=== PATIENT | male | born 1935 | race Hispanic/Latino ===

== ENCOUNTER 2017-08-10 12:28 | Observation (INO) | payer OTHER ==
[~2017-08-10] VITALS: Ht 160 cm; Wt 69.4 kg
[2017-08-10 13:07] LABS: EOSINOPHILS % (AUTO) 3.8 % (0.0-8.0); HEMATOCRIT 41.2 % (42-54); MEAN CORPUSCULAR HEMOGLOBIN 32.1 pg (27.0-33.0); MEAN CORPUSCULAR HGB CONC 35.6 g/dL (32.0-36.0); MEAN CORPUSCULAR VOLUME 90.2 fL (79-99); MONOCYTES % (AUTO) 10.6 % (3.0-13.0); NEUTROPHILS % (AUTO) 61.6 % (40.0-77.0); PLATELET COUNT (AUTO) 227 K/uL (130-400); RED BLOOD CELL COUNT(AUTO) 4.57 MIL/uL (4.50-6.20); RED CELL DISTRIBUTION WIDTH 13.6 % (11.0-15.5); WHITE BLOOD COUNT (AUTO) 4.9 K/uL (4.8-10.8)
[2017-08-10 14:02] LABS: ALBUMIN 3.7 g/dL (3.5-5.0); BILIRUBIN,TOTAL 0.5 mg/dL (0.2-1.0); CREATININE 0.8 mg/dL (0.5-1.5); POTASSIUM 4.6 mmol/L (3.5-5.1); TOTAL PROTEIN, SERUM 6.8 g/dL (6.0-8.3)
[2017-08-10] MEDS ORDERED: SODIUM CHLORIDE 0.9% 1000ML 1,000 ML IV ONE ×2 (14:03→17:47)
[2017-08-10] MEDS: SODIUM CHLORIDE 0.9% 1000ML 1,000 ML IV SCH (16:29)
[2017-08-10] MEDS ORDERED: ACETAMINOPHEN 325 MG TAB PO PRN ×2 (16:30)
[2017-08-10] MEDS ORDERED: ONDANSETRON HCL 4 MG/2 ML VIAL IV PRN (16:30)
[2017-08-10] MEDS ORDERED: MAG HYDROX/AL HYDROX/SIMETH ES 30 ML SUSP UDCUP PO PRN (16:30)
[2017-08-10] MEDS ORDERED: LACTULOSE 20 GM/30 ML UDCUP PO PRN (16:30)
[2017-08-10] MEDS ORDERED: GUAIFENESIN-DM 200/20 MG 10 ML PO PRN (16:30)
[2017-08-10] MEDS ORDERED: HYDR12.54 PO (18:37)
[2017-08-10] MEDS ORDERED: DULO20CA17 PO (18:37)
[2017-08-10] MEDS ORDERED: ATOR40TA69 PO (18:37)
[2017-08-10] MEDS ORDERED: METF500T6 PO (18:37)
[2017-08-10] MEDS ORDERED: LISI-613 PO (18:37)
[2017-08-10] MEDS ORDERED: PHARMACY COMMUNICATION MISC SCH (18:45)
[2017-08-10 18:48] VITALS: BP 130/109
[2017-08-10] MEDS ORDERED: AEC81 PO (18:48)
[2017-08-10 20:00] VITALS: BP 130/109
[2017-08-10] MEDS: FAMOTIDINE/PF 20 MG/2 ML VIAL IV SCH (20:35)
[2017-08-10 23:53] VITALS: BP 100/54
[2017-08-11] MEDS ORDERED: DEXTROSE 50%-WATER 50 ML DISP.SYRIN IV PRN
[2017-08-11] MEDS ORDERED: LIDOCAINE HCL-MPF 1% 2ML VIAL IVP PRN
[2017-08-11] MEDS ORDERED: POTASSIUM CHLORIDE 10% ELIXIR 20 MEQ/15 ML UDCUP PO PRN
[2017-08-11] MEDS ORDERED: POTASSIUM CHLORIDE 20MEQ/100ML 100 ML IV PRN
[2017-08-11] MEDS ORDERED: POTASSIUM CHLORIDE 20 MEQ ERTAB PO PRN
[2017-08-11] MEDS ORDERED: GLUCAGON 1MG KIT 1 MG ML IM PRN
[2017-08-11] MEDS ORDERED: IPRATROPIUM/ALBUTEROL SULFATE 3 ML SOLUTION IH PRN (00:15)
[2017-08-11 04:00] VITALS: BP 109/58
[2017-08-11 05:36] LABS: HEMATOCRIT 41.2 % (42-54); MEAN CORPUSCULAR HEMOGLOBIN 31.7 pg (27.0-33.0); MEAN CORPUSCULAR HGB CONC 34.7 g/dL (32.0-36.0); MEAN CORPUSCULAR VOLUME 91.3 fL (79-99); PLATELET COUNT (AUTO) 235 K/uL (130-400); RED BLOOD CELL COUNT(AUTO) 4.51 MIL/uL (4.50-6.20); RED CELL DISTRIBUTION WIDTH 13.6 % (11.0-15.5); WHITE BLOOD COUNT (AUTO) 4.4 K/uL (4.8-10.8)
[2017-08-11 05:48] LABS: CREATININE 0.8 mg/dL (0.5-1.5); POTASSIUM 4.6 mmol/L (3.5-5.1)
[2017-08-11 05:53] LABS: CHLORIDE,URINE RANDOM 51 mmol/L (110-250); POTASSIUM,URINE RANDOM 14 mmol/L (25-125); SODIUM,URINE RANDOM 42 mmol/l (40-220)
[2017-08-11] MEDS: SODIUM CHLORIDE 0.9% 1000ML 1,000 ML IV SCH ×2 (06:07→23:44)
[2017-08-11] MEDS: INSULIN HUMULIN R 100 UNIT/ML 3ML SQ SCH ×4 (06:07→21:00)
[2017-08-11] MEDS ORDERED: HYDRALAZINE HCL 20 MG/ML VIAL IV PRN ×2 (08:30)
[2017-08-11] MEDS ORDERED: KETOROLAC TROMETHAMINE 15MG/ML IV PRN (08:30)
[2017-08-11] MEDS: FAMOTIDINE/PF 20 MG/2 ML VIAL IV SCH ×2 (08:55→23:44)
[2017-08-11] MEDS: DULOXETINE HCL 10 MG PO SCH (09:00)
[2017-08-11 09:43] VITALS: BP_SYST 106; BP_SYST 143; BP_DIAS 57; BP_DIAS 74
[2017-08-11] MEDS ORDERED: IOPAMIDOL-370 100 ML VIAL IV ONE (10:36)
[2017-08-11 11:00] VITALS: BP 109/67
[2017-08-11] MEDS: LISINOPRIL 20 MG TABLET PO SCH (13:43)
[2017-08-11] MEDS: ASPIRIN 81 MG EC TAB PO SCH (13:43)
[2017-08-11] MEDS: ENOXAPARIN SODIUM 30 MG/0.3 ML SQ SCH (13:44)
[2017-08-11 16:00] VITALS: BP_SYST 104; BP_SYST 144; BP_DIAS 65
[2017-08-11 19:40] VITALS: BP 111/64
[2017-08-11] MEDS ORDERED: ATORVASTATIN CALCIUM 40 MG TABLET PO SCH (21:00)
[2017-08-11 23:30] VITALS: BP 113/65
[2017-08-12 03:40] VITALS: BP 107/53
[2017-08-12 03:44] LABS: HEMATOCRIT 40.5 % (42-54); MEAN CORPUSCULAR HEMOGLOBIN 31.9 pg (27.0-33.0); MEAN CORPUSCULAR HGB CONC 34.9 g/dL (32.0-36.0); MEAN CORPUSCULAR VOLUME 91.4 fL (79-99); NUCLEATED RED BLOOD CELLS 0.1 % (0.0-0.19); PLATELET COUNT (AUTO) 228 K/uL (130-400); RED BLOOD CELL COUNT(AUTO) 4.43 MIL/uL (4.50-6.20); RED CELL DISTRIBUTION WIDTH 13.7 % (11.0-15.5); WHITE BLOOD COUNT (AUTO) 4.4 K/uL (4.8-10.8)
[2017-08-12 04:16] LABS: CREATININE 0.8 mg/dL (0.5-1.5); POTASSIUM 4.4 mmol/L (3.5-5.1)
[2017-08-12] MEDS: INSULIN HUMULIN R 100 UNIT/ML 3ML SQ SCH (06:17)
[2017-08-12 07:49] VITALS: BP 133/66
[2017-08-12] MEDS: SODIUM CHLORIDE 0.9% 1000ML 1,000 ML IV SCH (08:29)
[2017-08-12] MEDS: DULOXETINE HCL 10 MG PO SCH (09:00)
[2017-08-12] MEDS: ENOXAPARIN SODIUM 30 MG/0.3 ML SQ SCH (10:09)
[2017-08-12] MEDS: ASPIRIN 81 MG EC TAB PO SCH (10:09)
[2017-08-12] MEDS: FAMOTIDINE/PF 20 MG/2 ML VIAL IV SCH (10:09)
[2017-08-12] MEDS: LISINOPRIL 20 MG TABLET PO SCH (10:09)
[2017-10-23] MEDS ORDERED: GABA-529 PO (13:39)
[2017-10-23] MEDS ORDERED: INSU100V12 SQ (13:39)
== END 2017-08-12 10:25 | disposition home or self-care (01) ==
LOC: EDH 12:28 → EDHIP 16:29 → 3BH 18:08
PROVIDERS: ADMIT Family Medicine; ATTEND Family Medicine
DX: E87.1 Hypo-osmolality and hyponatremia (principal); E86.0 Dehydration; R13.10 Dysphagia, unspecified; F17.210 Nicotine dependence, cigarettes, uncomplicated; E11.9 Type 2 diabetes mellitus without complications; E78.5 Hyperlipidemia, unspecified; I10 Essential (primary) hypertension; J44.9 Chronic obstructive pulmonary disease, unspecified; Z85.118 Personal history of other malignant neoplasm of bronchus and lung
CPT/HCPCS: 36415 ×3; 70470; 70492; 71045; 74230; 80048 ×2; 80051; 80053; 82948 ×7; 83880; 83930; 83935; 84484; 84588; 85025; 85027 ×2; 92611; 93005; 94664; 96372; 96374; 96376 ×2; 97161; 99285; G0378 ×42; G8978; G8979; G8980; G8981; G8982; G8983; J1650 ×2; J1815; J3490 ×4; J7030 ×3; Q9967

== ENCOUNTER → 2017-09-09 | Outpatient (CLI) | payer OTHER ==
[~2017-09-09] MED LIST: AEC81 PO; ATOR40TA69 PO; DULO20CA17 PO; GABA-529 PO; INSU100V12 SQ; LISI-613 PO; METF500T6 PO; NAPR-1192 PO
== END ==
LOC: RAH 09:22
PROVIDERS: ATTEND Internal Medicine
DX: M17.12 Unilateral primary osteoarthritis, left knee (principal)
CPT/HCPCS: 73562

== ENCOUNTER 2017-10-24 10:06 | Day surgery (SDC) | payer OTHER ==
[~2017-10-24] VITALS: Ht 165.1 cm; Wt 65.8 kg
[~2017-10-24 10:06] MED LIST changes: -AEC81 PO; -ATOR40TA69 PO; -DULO20CA17 PO; -NAPR-1192 PO; +SODIUM CHLORIDE 0.9% 1000ML 1,000 ML IV ONE
[2017-10-24] MEDS ORDERED: NAPR-1192 PO (11:02)
[2017-10-24 11:03] VITALS: BP 141/67
[2017-10-24] MEDS ORDERED: PROPOFOL 10 MG/ML 20ML VIAL IV ONE (11:59)
[2017-10-24 12:10] VITALS: BP 94/48
== END 2017-10-24 12:58 | disposition home or self-care (01) ==
LOC: ENDO 10:06 → DAH 10:06 → ENDO 12:58
PROVIDERS: ATTEND Internal Medicine Gastroenterology
DX: K29.60 Other gastritis without bleeding (principal); B96.81 Helicobacter pylori [H. pylori] as the cause of diseases classified elsewhere; E11.43 Type 2 diabetes mellitus with diabetic autonomic (poly)neuropathy; K31.84 Gastroparesis; R63.4 Abnormal weight loss; I10 Essential (primary) hypertension; E78.4 Other hyperlipidemia; J44.9 Chronic obstructive pulmonary disease, unspecified; F17.210 Nicotine dependence, cigarettes, uncomplicated; Z79.82 Long term (current) use of aspirin; Z85.118 Personal history of other malignant neoplasm of bronchus and lung; Z79.899 Other long term (current) drug therapy
CPT/HCPCS: 43239; 82948 ×2; 88305; 88312; 93005; A4606; J2704; J7030

== ENCOUNTER → 2017-11-10 | Outpatient (CLI) | payer OTHER ==
[~2017-11-10] MED LIST changes: +NAPR-1192 PO; -SODIUM CHLORIDE 0.9% 1000ML 1,000 ML IV ONE
[2017-11-10 10:10] LABS: CREATININE 0.8 mg/dL (0.5-1.5)
== END | disposition home or self-care (01) ==
LOC: LAB 08:42
PROVIDERS: ATTEND Internal Medicine
DX: R63.4 Abnormal weight loss (principal)
CPT/HCPCS: 36415; 82565; 84520

== ENCOUNTER → 2018-07-02 | Outpatient (CLI) | payer OTHER ==
[~2018-07-02] MED LIST changes: +METF-444 PO; -METF500T6 PO
== END | disposition home or self-care (01) ==
LOC: RAH 08:45
PROVIDERS: ATTEND Internal Medicine
DX: R91.8 Other nonspecific abnormal finding of lung field (principal); M47.895 Other spondylosis, thoracolumbar region
CPT/HCPCS: 71046

== ENCOUNTER → 2018-08-27 | Outpatient (CLI) | payer OTHER | END | disposition home or self-care (01) | LOC: RAH 07:15 | PROVIDERS: ATTEND Internal Medicine | DX: R05 Cough (principal); I70.0 Atherosclerosis of aorta; M47.815 Spondylosis without myelopathy or radiculopathy, thoracolumbar region | CPT/HCPCS: 71046 ==

== ENCOUNTER 2018-10-06 04:05 | Inpatient (IN) | payer OTHER | END 2018-10-09 13:50 | disposition home or self-care (01) | LOC: EDH 04:05 → EDHIP 06:15 → 3BH 18:23 | DX: J18.9 Pneumonia, unspecified organism (principal); J96.01 Acute respiratory failure with hypoxia; J44.0 Chronic obstructive pulmonary disease with (acute) lower respiratory infection; R04.2 Hemoptysis ==

== ENCOUNTER 2019-04-19 18:48 | Observation (INO) | payer OTHER ==
[~2019-04-19] VITALS: Ht 160 cm; Wt 64.9 kg
[2019-04-19] MEDS ORDERED: IPRATROPIUM/ALBUTEROL SULFATE 3 ML SOLUTION IH ONE (20:18)
[2019-04-19 20:19] LABS: BASOPHILS % (AUTO) 0.7 % (0.0-5.0); EOSINOPHILS % (AUTO) 0.1 % (0.0-8.0); HEMATOCRIT 43.5 % (42-54); LYMPHOCYTES % (AUTO) 20.4 % (21.0-51.0); MEAN CORPUSCULAR HEMOGLOBIN 32.1 pg (27.0-33.0); MEAN CORPUSCULAR HGB CONC 34.5 g/dL (32.0-36.0); MONOCYTES % (AUTO) 8.4 % (3.0-13.0); NEUTROPHILS % (AUTO) 70.4 % (40.0-77.0); NUCLEATED RED BLOOD CELLS 0.1 % (0.0-0.19); PLATELET COUNT (AUTO) 219 K/uL (130-400); RED BLOOD CELL COUNT(AUTO) 4.68 MIL/uL (4.50-6.20); RED CELL DISTRIBUTION WIDTH 13.6 % (11.0-15.5)
[2019-04-19 20:35] LABS: CREATININE 0.9 mg/dL (0.5-1.5); POTASSIUM 4.2 mmol/L (3.5-5.1)
[2019-04-19 20:40] LABS: ALBUMIN 3.3 g/dL (3.5-5.0); BILIRUBIN,TOTAL 0.3 mg/dL (0.2-1.0); TOTAL PROTEIN, SERUM 6.6 g/dL (6.0-8.3)
[2019-04-19] MEDS ORDERED: LEVOFLOXACIN 500 MG/D5W 100 ML 100 ML ONE (20:49)
[2019-04-19] MEDS ORDERED: METHYLPREDNISOLONE SOD SUCC 125MG/2ML VIAL ONE (20:49)
[2019-04-19] MEDS: METHYLPREDNISOLONE SOD SUCC 40MG/ML 1ML IVP SCH (22:00)
[2019-04-19] MEDS ORDERED: ONDANSETRON HCL 4 MG/2 ML VIAL IV PRN (22:00)
[2019-04-19] MEDS ORDERED: LACTULOSE 20 GM/30 ML UDCUP PO PRN (22:00)
[2019-04-19] MEDS ORDERED: ACETAMINOPHEN 325 MG TAB PO PRN ×2 (22:00)
[2019-04-19] MEDS: IPRATROPIUM/ALBUTEROL SULFATE 3 ML SOLUTION IH SCH (22:00)
[2019-04-19] MEDS: LEVOFLOXACIN 500 MG/D5W 100 ML 100 ML IV SCH (22:00)
--- NOTE | 2019-04-19 22:46 | NUR ---
ADMIT ADMITTED PTT O ROOM 419, AAOX3. PT HAS VERY SOFT HOARSE VOICE BUT IS COHERENT. PT CLAIMS HE HAD SUCH A VOICE ALREADY. ADMISSION CARE DONE. ADMISSION DATA BASE COMPLETED. IN FOR MORE CARE AND MANAGEMENT. Addendum: 04/19/19 at 5843 by RICH MO RN RN Amended: Links added.
[2019-04-19 22:50] VITALS: BP 139/78
[2019-04-20] MEDS ORDERED: INSNOV SQ (00:13)
[2019-04-20] MEDS ORDERED: ASPI-555 PO (00:13)
[2019-04-20] MEDS ORDERED: LORA10TA7 PO (00:13)
[2019-04-20] MEDS ORDERED: AZIT250T9 PO (00:13)
[2019-04-20] MEDS ORDERED: ATOR40TA69 PO (00:13)
[2019-04-20] MEDS ORDERED: [UNRECOGNIZED DRUG - CODE] PO (00:13)
[2019-04-20] MEDS ORDERED: PRED20 PO (00:13)
--- NOTE | 2019-04-20 01:55 | NUR ---
ROUNDS PT RESTING WELL, FAIRLY ASLEEP WITH RESPIRATIONS EVEN AND UNLABORED. NO NOTED DISTRESS. KEPT UNDISTURBED FOR NOW WILL MONITOR PT. CALL LIGHT WITHIN REACH.
[2019-04-20] MEDS: IPRATROPIUM/ALBUTEROL SULFATE 3 ML SOLUTION IH SCH ×6 (01:57→21:55)
[2019-04-20 04:00] VITALS: BP 124/71
[2019-04-20 04:08] LABS: BASOPHILS % (AUTO) 0.1 % (0.0-5.0); HEMATOCRIT 40.8 % (42-54); LYMPHOCYTES % (AUTO) 11.9 % (21.0-51.0); MEAN CORPUSCULAR HGB CONC 34.1 g/dL (32.0-36.0); MEAN CORPUSCULAR VOLUME 93.9 fL (79-99); MONOCYTES % (AUTO) 2.2 % (3.0-13.0); NEUTROPHILS % (AUTO) 85.8 % (40.0-77.0); NUCLEATED RED BLOOD CELLS 0.1 % (0.0-0.19); PLATELET COUNT (AUTO) 174 K/uL (130-400); RED BLOOD CELL COUNT(AUTO) 4.35 MIL/uL (4.50-6.20); WHITE BLOOD COUNT (AUTO) 4.5 K/uL (4.8-10.8)
[2019-04-20 04:16] LABS: CREATININE 0.8 mg/dL (0.5-1.5); POTASSIUM 4.1 mmol/L (3.5-5.1)
[2019-04-20] MEDS: METHYLPREDNISOLONE SOD SUCC 40MG/ML 1ML IVP SCH ×2 (04:57→16:08)
--- NOTE | 2019-04-20 04:57 | NUR ---
MEDS PT RESTING WELL. NO RESPIRATORY DISTRESS NOTED. NO CONCERNS VERBALIZED. DUE SOLU MEDROL IV ADMINISTERED. KEPT COMFORTABLE. FOR MORE CARE.
[2019-04-20] MEDS: INSULIN HUMULIN R 100 UNIT/ML 3ML SQ SCH ×4 (07:24→21:27)
[2019-04-20 07:46] VITALS: BP 142/71
[2019-04-20] MEDS: ASPIRIN 81 MG EC TAB PO SCH (08:39)
[2019-04-20] MEDS: LORATADINE 10 MG TABLET PO SCH (08:40)
[2019-04-20] MEDS: FAMOTIDINE 20MG TAB 20 MG TAB PO SCH ×2 (08:40→21:17)
[2019-04-20] MEDS: LISINOPRIL 20 MG TABLET PO SCH (08:40)
[2019-04-20] MEDS: ENOXAPARIN SODIUM 30 MG/0.3 ML SQ SCH (08:42)
[2019-04-20 11:06] VITALS: BP 135/76
--- NOTE | 2019-04-20 12:02 | NUR ---
bs of 500's, pt on solumedrol; CHECK OUT CLERK talley aware trade union secretary entering orders.
[2019-04-20] MEDS ORDERED: INSULIN HUMULIN R 100 UNIT/ML 3ML SQ SCH (13:45)
[2019-04-20 16:21] VITALS: BP 129/66
[2019-04-20 19:39] VITALS: BP 120/67
[2019-04-20] MEDS ORDERED: ATORVASTATIN CALCIUM 40 MG TABLET PO SCH (21:00)
[2019-04-20] MEDS: LEVOFLOXACIN 500 MG/D5W 100 ML 100 ML IV SCH (21:17)
--- NOTE | 2019-04-20 21:20 | NUR ---
MEDS SHIFT ASSESSMENT DONE, PLEASE REFER TO CHART. DUE MEDS ADMINISTERED, TOLERATED WELL. KEPT RESTED AND COMFORTABLE. CALL LIGHT WITHIN REACH. WILL MONITOR PT. Addendum: 04/20/19 at 2305 by RICH MO RN RN Amended: Links added.
[2019-04-20] MEDS ORDERED: INSU10VI3 SQ (22:53)
[2019-04-20 23:51] VITALS: BP 123/68
[2019-04-21] MEDS: IPRATROPIUM/ALBUTEROL SULFATE 3 ML SOLUTION IH SCH ×2 (01:58→05:19)
--- NOTE | 2019-04-21 02:00 | NUR ---
ROUNDS PT RESTING WELL, FAIRLY ASLEEP WITH RESPIRATIONS EVEN AND UNLABORED. NO DISTRESS NOTED. KEPT UNDISTURBED FOR NOW. WILL MONITOR PT. CALL LIGHT WITHIN REACH.
[2019-04-21 03:45] VITALS: BP 115/72
--- NOTE | 2019-04-21 05:38 | NUR ---
ROUNDS PT RESTING WELL, NO CONCERNS VERBALIZED. NO DISTRESS NOTED. FOR MORE CARE.
[2019-04-21 05:46] LABS: BASOPHILS % (AUTO) 0.1 % (0.0-5.0); HEMATOCRIT 38.6 % (42-54); LYMPHOCYTES % (AUTO) 12.8 % (21.0-51.0); MEAN CORPUSCULAR HEMOGLOBIN 31.5 pg (27.0-33.0); MEAN CORPUSCULAR VOLUME 92.9 fL (79-99); NEUTROPHILS % (AUTO) 79.1 % (40.0-77.0); NUCLEATED RED BLOOD CELLS 0.1 % (0.0-0.19); PLATELET COUNT (AUTO) 180 K/uL (130-400); RED BLOOD CELL COUNT(AUTO) 4.15 MIL/uL (4.50-6.20); RED CELL DISTRIBUTION WIDTH 13.7 % (11.0-15.5); WHITE BLOOD COUNT (AUTO) 8.6 K/uL (4.8-10.8)
[2019-04-21 05:55] LABS: CREATININE 1.8 mg/dL (0.5-1.5); POTASSIUM 3.6 mmol/L (3.5-5.1)
[2019-04-21] MEDS: INSULIN HUMULIN R 100 UNIT/ML 3ML SQ SCH (06:21)
[2019-04-21 08:00] VITALS: BP 138/75
[2019-04-21] MEDS: ENOXAPARIN SODIUM 30 MG/0.3 ML SQ SCH (09:00)
[2019-04-21] MEDS ORDERED: PREDNISONE 20 MG TABLET PO SCH (09:00)
--- NOTE | 2019-04-21 09:02 | NUR ---
CM NOTE PT IN OBS STATUS, NO TRIGGERS TO CM, NO CONCERNS VOICE, DC ORDER IN COMPUTERS, DETAILED CM ASSESSMENT DEFERRED Addendum: 04/21/19 at 0903 by GERSON YORK RN CM Amended: Links added.
[2019-04-21] MEDS: FAMOTIDINE 20MG TAB 20 MG TAB PO SCH (09:05)
[2019-04-21] MEDS: ASPIRIN 81 MG EC TAB PO SCH (09:05)
[2019-04-21] MEDS: LORATADINE 10 MG TABLET PO SCH (09:06)
[2019-04-21] MEDS: LISINOPRIL 20 MG TABLET PO SCH (09:06)
== END 2019-04-21 09:50 | disposition home or self-care (01) ==
LOC: EDH 18:48 → EDHIP 21:48 → 4CH 22:31
PROVIDERS: ADMIT Internal Medicine; ATTEND Internal Medicine
DX: J44.1 Chronic obstructive pulmonary disease with (acute) exacerbation (principal); R06.03 Acute respiratory distress; I10 Essential (primary) hypertension; E11.9 Type 2 diabetes mellitus without complications; F17.200 Nicotine dependence, unspecified, uncomplicated; Z85.118 Personal history of other malignant neoplasm of bronchus and lung; Z90.89 Acquired absence of other organs; Z79.4 Long term (current) use of insulin; Z79.899 Other long term (current) drug therapy
CPT/HCPCS: 36415 ×3; 71045; 80048 ×2; 80053; 82550; 82947; 82948 ×7; 83880; 84484; 85025 ×3; 93005; 94640 ×9; 94664; 96365; 96372 ×2; 96375; 96376; 99284; G0378 ×33; J1650; J1815 ×4; J1956 ×2; J2920 ×2; J2930

== ENCOUNTER 2019-04-30 11:45 | Emergency (ER) | payer OTHER ==
[~2019-04-30 11:45] MED LIST changes: +ASPI-555 PO; +ATOR40TA69 PO; -GABA-529 PO; -INSU100V12 SQ; +INSU10VI3 SQ; +LORA10TA7 PO; -NAPR-1192 PO; +PRED20 PO; +[UNRECOGNIZED DRUG - CODE] PO
[2019-04-30 12:33] LABS: BASOPHILS % (AUTO) 0.9 % (0.0-5.0); EOSINOPHILS % (AUTO) 0.2 % (0.0-8.0); HEMATOCRIT 44.3 % (42-54); LYMPHOCYTES % (AUTO) 12.5 % (21.0-51.0); MEAN CORPUSCULAR HEMOGLOBIN 31.6 pg (27.0-33.0); MEAN CORPUSCULAR HGB CONC 33.5 g/dL (32.0-36.0); MEAN CORPUSCULAR VOLUME 94.3 fL (79-99); MONOCYTES % (AUTO) 5.3 % (3.0-13.0); NEUTROPHILS % (AUTO) 81.1 % (40.0-77.0); PLATELET COUNT (AUTO) 179 K/uL (130-400); RED CELL DISTRIBUTION WIDTH 13.6 % (11.0-15.5); WHITE BLOOD COUNT (AUTO) 8.2 K/uL (4.8-10.8)
[2019-04-30 12:46] LABS: POTASSIUM 5.4 mmol/L (3.5-5.1)
[2019-04-30 12:50] LABS: ALBUMIN 3.4 g/dL (3.5-5.0); BILIRUBIN,TOTAL 0.4 mg/dL (0.2-1.0); TOTAL PROTEIN, SERUM 6.5 g/dL (6.0-8.3)
[2019-04-30] MEDS ORDERED: SODIUM CHLORIDE 0.9% 1000ML 1,000 ML IV ONE (13:14)
[2019-04-30] MEDS ORDERED: INSULIN HUMULIN R 100 UNIT/ML 3ML ONE (13:14)
[2019-04-30 13:31] LABS: APPEARANCE,URINE Clear (CLEAR); BILIRUBIN,URINE Negative (NEGATIVE); COLOR,URINE Yellow (YELLOW); GLUCOSE, URINE (UA) >=1000 mg/dL (NEGATIVE); KETONES,URINE Negative (NEGATIVE); LEUKOCYTE ESTERASE ,URINE Negative (NEGATIVE); NITRATE,URINE Negative (NEGATIVE); OCCULT BLOOD,URINE Negative (NEGATIVE); PH,URINE 6.5 (5.0-8.0); PROTEIN,URINE Negative (NEGATIVE); UROBILINOGEN,URINE 0.2 mg/dL (0.2-1.0)
[2019-04-30 14:25] LABS: BACTERIA,URINE Rare /HPF (None Seen); RBC,URINE None Seen /HPF (0-1); SQUAMOUS EPITHELIAL CELL,UR 0-2 /HPF (0-2); WBC,URINE None Seen /HPF (0-1)
[2019-04-30 15:10] LABS: CREATININE 0.8 mg/dL (0.5-1.5); POTASSIUM 4.1 mmol/L (3.5-5.1)
== END 2019-04-30 16:04 | disposition home or self-care (01) ==
LOC: EDH 11:45
DX: E11.65 Type 2 diabetes mellitus with hyperglycemia (principal); E86.0 Dehydration; Z85.118 Personal history of other malignant neoplasm of bronchus and lung; Z87.891 Personal history of nicotine dependence
CPT/HCPCS: 36415; 71045; 80048; 80053; 81001; 82550; 82948; 84484; 85025; 93005; 96361; 96374; 99285; J1815; J7030

== ENCOUNTER 2019-09-12 19:35 | Observation (INO) | payer OTHER ==
[~2019-09-12] VITALS: Ht 165.1 cm; Wt 70.0 kg
[~2019-09-12 19:35] MED LIST changes: -ASPI-555 PO; -LORA10TA7 PO; +OLAN5TAB27 PO; -PRED20 PO; -[UNRECOGNIZED DRUG - CODE] PO
[2019-09-12 20:21] LABS: BASOPHILS % (AUTO) 0.2 % (0.0-5.0); EOSINOPHILS % (AUTO) 0.8 % (0.0-8.0); HEMATOCRIT 41.3 % (42-54); LYMPHOCYTES % (AUTO) 7.7 % (21.0-51.0); MEAN CORPUSCULAR HEMOGLOBIN 29.7 pg (27.0-33.0); MEAN CORPUSCULAR HGB CONC 32.7 g/dL (32.0-36.0); MONOCYTES % (AUTO) 7.7 % (3.0-13.0); NEUTROPHILS % (AUTO) 82.9 % (40.0-77.0); PLATELET COUNT (AUTO) 143 K/uL (130-400); RED BLOOD CELL COUNT(AUTO) 4.54 MIL/uL (4.50-6.20); RED CELL DISTRIBUTION WIDTH 12.5 % (11.0-15.5); WHITE BLOOD COUNT (AUTO) 12.9 K/uL (4.8-10.8)
[2019-09-12] MEDS ORDERED: SODIUM CHLORIDE 0.9% 1000ML 1,000 ML IV ONE (20:25)
[2019-09-12 20:39] LABS: CARBON DIOXIDE 31 mmol/L (21-32); CHLORIDE 97 mmol/L (101-111); CREATININE 0.8 mg/dL (0.5-1.5); GLOMERULAR FILTR. RATE CALC 98 mL/min (>60); GLUCOSE,RANDOM 310 mg/dL (70-105); POTASSIUM 4.5 mmol/L (3.5-5.1); SODIUM SERUM 134 mmol/L (136-145); UREA NITROGEN, BLOOD 16 mg/dL (7-18)
[2019-09-12 20:44] LABS: APPEARANCE,URINE Clear (CLEAR); BILIRUBIN,URINE Negative (NEGATIVE); COLOR,URINE Yellow (YELLOW); GLUCOSE, URINE (UA) >=1000 mg/dL (NEGATIVE); KETONES,URINE Negative (NEGATIVE); LEUKOCYTE ESTERASE ,URINE Negative (NEGATIVE); NITRATE,URINE Negative (NEGATIVE); OCCULT BLOOD,URINE Negative (NEGATIVE); PROTEIN,URINE Negative (NEGATIVE)
[2019-09-12] MEDS ORDERED: IPRATROPIUM/ALBUTEROL SULFATE 3 ML SOLUTION IH ONE ×2 (20:48→22:42)
[2019-09-12 20:59] LABS: ALANINE AMINOTRANSFERASE 20 U/L (12-78); ALBUMIN 3.2 g/dL (3.5-5.0); ASPARTATE AMINOTRANSFERASE 12 U/L (10-37); BILIRUBIN,TOTAL 0.4 mg/dL (0.2-1.0); CREATINE KINASE, TOTAL 25 U/L (21-232); MYOGLOBIN 40 ng/mL (10-92); TOTAL PROTEIN, SERUM 6.3 g/dL (6.0-8.3); TROPONIN I < 0.04 ng/mL (0.00-0.06)
[2019-09-12 21:18] LABS: BACTERIA,URINE None Seen /HPF (None Seen); RBC,URINE None Seen /HPF (0-1); SQUAMOUS EPITHELIAL CELL,UR None Seen /HPF (0-2); WBC,URINE 0-1 /HPF (0-1)
[2019-09-12 21:18] LABS: ABG BASE EXCESS 2.6 mmol/L (-2.0-3.0); ABG HCO3 28.3 mmol/L (21.0-28.0); ABG OXYGEN SATURATION 91.9 % (95.0-99.0); ABG PCO2 48 mmHg (35-48)
[2019-09-12 21:36] LABS: INR 0.97 (0.85-1.15); PARTIAL THROMBOPLASTIN TIME 32.4 SEC (26.3-35.5); PROTHROMBIN TIME 10.5 SEC (9.6-11.6)
[2019-09-12] MEDS ORDERED: SODIUM CHLORIDE 0.9% 500ML 500 ML IV ONE (22:24)
[2019-09-12] MEDS ORDERED: ACETAMINOPHEN 325 MG TAB ONE (22:24)
[2019-09-12] MEDS ORDERED: PREDNISONE 20 MG TABLET ONE (22:33)
[2019-09-12] MEDS ORDERED: LEVOFLOXACIN 750 MG/D5W 150 ML 150 ML ONE (22:33)
[2019-09-12] MEDS ORDERED: INSULIN HUMULIN R 100 UNIT/ML 3ML ONE (22:47)
[2019-09-12] MEDS: LEVOFLOXACIN 750 MG/D5W 150 ML 150 ML IV SCH (23:44)
[2019-09-12] MEDS ORDERED: DEXTROSE 50%-WATER 50 ML DISP.SYRIN IV PRN (23:45)
[2019-09-12] MEDS ORDERED: GLUCAGON 1MG KIT 1 MG ML IM PRN (23:45)
[2019-09-13] VITALS (7 sets, daily range): BP systolic 113–135; BP diastolic 52–68
--- NOTE | 2019-09-13 00:15 | NUR ---
ADMIT PT ADMITTED TO ROOM 326, AAOX3. NOTED PT TO BE VERY SLEEPY AND TIRED. ADMISSION CARE DONE. ADMISSION DATA BASE COMPLETED. PLACED IN BED COMFORTABLY WITH HOB ELEVATED. KEPT O2 AT 2LPM VIA NC. ORIENTED TO ROOM AND UNIT. IN FOR MORE CARE AND MANAGEMENT. Addendum: 09/13/19 at 0109 by RICH MO RN RN Amended: Links added.
[2019-09-13] MEDS: METHYLPREDNISOLONE SOD SUCC 125MG/2ML VIAL IVP SCH ×3 (00:38→23:52)
--- NOTE | 2019-09-13 02:00 | NUR ---
ROUNDS PT FAIRLY ASLEEP WITH RESPIRATIONS EVEN AND UNLABORED. NO NOTED DISTRESS. KEPT UNDISTURBED FOR NOW. WILL MONITOR PT.
[2019-09-13] MEDS ORDERED: ACETAMINOPHEN 325 MG TAB ONE (03:35)
[2019-09-13] MEDS ORDERED: VANCOMYCIN PROTOCOL PER PHARMACY IV SCH (03:45)
[2019-09-13] MEDS ORDERED: ACETAMINOPHEN 325 MG TAB PO PRN (03:45)
--- NOTE | 2019-09-13 05:44 | NUR ---
ROUNDS PT STILL ASLEEP. NO DISTRESS NOTED. KEPT COMFORTABLE. FOR MORE CARE.
[2019-09-13 06:08] LABS: HEMATOCRIT 37.4 % (42-54); MEAN CORPUSCULAR HEMOGLOBIN 30.2 pg (27.0-33.0); MEAN CORPUSCULAR HGB CONC 32.1 g/dL (32.0-36.0); PLATELET COUNT (AUTO) 145 K/uL (130-400); RED BLOOD CELL COUNT(AUTO) 3.98 MIL/uL (4.50-6.20); RED CELL DISTRIBUTION WIDTH 12.4 % (11.0-15.5); WHITE BLOOD COUNT (AUTO) 10.6 K/uL (4.8-10.8)
[2019-09-13 06:16] LABS: ALBUMIN 2.6 g/dL (3.5-5.0); BILIRUBIN,TOTAL 0.4 mg/dL (0.2-1.0); CREATININE 0.8 mg/dL (0.5-1.5); POTASSIUM 5.1 mmol/L (3.5-5.1); TOTAL PROTEIN, SERUM 5.6 g/dL (6.0-8.3)
[2019-09-13] MEDS: INSULIN R PO SS1 SQ SCH ×4 (06:44→20:51)
[2019-09-13] MEDS: METFORMIN HCL 500 MG TABLET PO SCH ×2 (08:29→20:50)
[2019-09-13] MEDS: LISINOPRIL 20 MG TABLET PO SCH (08:29)
[2019-09-13] MEDS: OLANZAPINE 5 MG TAB PO SCH (08:29)
[2019-09-13] MEDS: INSULIN HUMULIN 70/30 100 UNIT/ML 3ML SQ SCH (08:32)
--- NOTE | 2019-09-13 16:25 | NUR ---
INITIAL SW met with patient. Patient lives with spouse, Nataliya Fuentes, [phone]. No home services. DME: BPM, glucometer (uses insulin), nebulizer. Patient is able to complete ADL's and drives. PCP is Dr. Ori Boyer. Pharmacy is [facility] located on [address] in [place]. DCP is home. Addendum: 09/13/19 at 1632 by BOB PALMER SS Amended: Links added.
[2019-09-13] MEDS: ATORVASTATIN CALCIUM 40 MG TABLET PO SCH (20:50)
--- NOTE | 2019-09-13 20:50 | NUR ---
MEDS SHIFT ASSESSMENT DONE, PLEASE REFER TO CHART. DUE MED ADMINISTERED, TOLERATED WELL. KEPT RESTED AND COMFORTABLE WITH HOB ELEVATED. CALL LIGHT WITHIN REACH. WILL MONITOR PT. Addendum: 09/13/19 at 2213 by RICH MO RN RN Amended: Links added.
--- NOTE | 2019-09-13 21:50 | NUR ---
PAGED DR SNELL VIA ANSWERING SERVICE. CALLED BACK AND REFERRED PT'S WHEEZING. NEW ORDER FOR REATHING TREATMENT RECEIVED, PLEASE REFER TO CPOE. RT MADE AWARE OF NEW ORDER.
[2019-09-13] MEDS: IPRATROPIUM/ALBUTEROL SULFATE 3 ML SOLUTION IH SCH (22:00)
[2019-09-13] MEDS ORDERED: IPRATROPIUM/ALBUTEROL SULFATE 3 ML SOLUTION IH ONE (22:01)
[2019-09-13] MEDS: LEVOFLOXACIN 750 MG/D5W 150 ML 150 ML IV SCH (23:52)
[2019-09-14] MEDS: IPRATROPIUM/ALBUTEROL SULFATE 3 ML SOLUTION IH SCH ×5 (01:15→23:38)
--- NOTE | 2019-09-14 02:00 | NUR ---
ROUNDS PT RESTING WELL, FAIRLY ASLEEP WITH RESPIRATIONS EVEN AND UNLABORED. NO NOTED DISTRESS. KEPT UNDISTURBED FOR NOW. WILL MONITOR PT.
[2019-09-14 03:29] VITALS: BP 109/49
[2019-09-14] MEDS: INSULIN R PO SS1 SQ SCH ×4 (06:10→21:11)
--- NOTE | 2019-09-14 06:50 | NUR ---
REPORT REPORT GIVEN TO CHARLEE INCOMING SHIFT RN. ENDORSING PT FOR MORE CARE AND MANAGEMENT.
[2019-09-14 07:55] VITALS: BP 115/67
[2019-09-14] MEDS: OLANZAPINE 5 MG TAB PO SCH (08:59)
[2019-09-14] MEDS: METFORMIN HCL 500 MG TABLET PO SCH ×2 (08:59→21:05)
[2019-09-14] MEDS: LISINOPRIL 20 MG TABLET PO SCH (09:00)
[2019-09-14] MEDS ORDERED: MEROPENEM 1 GM VIAL IVP SCH (09:00)
[2019-09-14] MEDS: INSULIN HUMULIN 70/30 100 UNIT/ML 3ML SQ SCH (09:07)
[2019-09-14 09:23] LABS: INR 0.98 (0.85-1.15); PARTIAL THROMBOPLASTIN TIME 28.6 SEC (26.3-35.5); PROTHROMBIN TIME 10.6 SEC (9.6-11.6)
[2019-09-14 10:57] VITALS: BP 98/49
[2019-09-14] MEDS: METHYLPREDNISOLONE SOD SUCC 125MG/2ML VIAL IVP SCH (11:44)
--- NOTE | 2019-09-14 11:49 | NUR ---
CM Note: [facility] pending approval, acceptance, and chair time CM met with pt discussed MD recommendations for AIU, pt agreeable, JACK signed. Faxed clinicals, lab results, MARS, confirmation received. Spoke to Cleo Hansen [facility], aware dcp once approved, aware pending MD script for Merrem IV, and pending PICC placement today. Pt pending approva, acceptnace, and chair time. Primary nurse aware, flagged script in front of chart, MD pending to sign, will call CM once available. Informed Nat CONN Director. CM to cont to follow up.
--- NOTE | 2019-09-14 12:14 | NUR ---
MD ANDERSON ATTEMPTED TO CONTACT DR. SNELL BY OFFICE PHONE, AND PAGER [phone]. PAGER IS NOT IN SERVICE AND NUMEROUS ATTEMPTS WERE MADE TO SPEAK TO A PERSON AT THE OFFICE # [phone] TO REPORT CRITICAL LAB VALUE OF ELEVATED BLOOD SUGAR OF 451. ALSO NEEDED TO OBTAIN ORDER FOR ANTIBIOTICS FOR AIU. Addendum: 09/14/19 at 1218 by CHARLEE HINTON RN RN REQUESTED DIVIDEND CLERKCLERK SOWMYA LILLY TO ADVISE.
--- NOTE | 2019-09-14 15:45 | NUR ---
CM Note: [facility] pending approval and chair time CM faxed script and PICC info to [facility], confirmation received. Called [facility], left voicemail, awaiting call back. Pt pending approval and chair time. Primary nurse aware. CM to cont to follow up.
[2019-09-14 17:29] VITALS: BP 117/60
[2019-09-14] MEDS: MEROPENEM 1 GM VIAL IVP SCH (17:31)
[2019-09-14 20:00] VITALS: BP 95/51
--- NOTE | 2019-09-14 21:00 | NUR ---
MEDS AWAKENED PT FOR DUE MEDS. SHIFT ASSESSMENT DONE, PLEASE REFER TO CHART. DUE MEDS ADMINISTERED, TOLERATED WELL. PICC LINE FLUSHED, BUT PORTS FLUSHES GOOD AND WHITE PORT DRAWS BLOOD FINE BUT PEACH PORT DOES NOT DRAW BLOOD. KEPT COMFORTABLE IN BED WITH HOB ELEVATED. KEPT RESTED AND COMFORTABLE. CALL LIGHT WITHIN REACH. WILL MONITOR PT. Addendum: 09/14/19 at 2322 by RICH MO RN RN Amended: Links added.
[2019-09-14] MEDS: ATORVASTATIN CALCIUM 40 MG TABLET PO SCH (21:05)
[2019-09-14 23:42] VITALS: BP 117/60
[2019-09-15] MEDS: MEROPENEM 1 GM VIAL IVP SCH ×3 (00:13→18:18)
[2019-09-15] MEDS: LEVOFLOXACIN 750 MG/D5W 150 ML 150 ML IV SCH (00:13)
[2019-09-15] MEDS: METHYLPREDNISOLONE SOD SUCC 125MG/2ML VIAL IVP SCH ×2 (00:13→12:52)
--- NOTE | 2019-09-15 02:00 | NUR ---
SL PT IS FAIRLY ASLEEP. NO DISTRESS NOTED. IV ABX FINISHED, SL PIV. KEPT COMFORTABLE. WILL MONITOR PT.
[2019-09-15 03:27] VITALS: BP 124/67
[2019-09-15 05:02] LABS: HEMATOCRIT 34.9 % (42-54); MEAN CORPUSCULAR HGB CONC 32.4 g/dL (32.0-36.0); MEAN CORPUSCULAR VOLUME 92.6 fL (79-99); PLATELET COUNT (AUTO) 146 K/uL (130-400); RED BLOOD CELL COUNT(AUTO) 3.77 MIL/uL (4.50-6.20); WHITE BLOOD COUNT (AUTO) 11.1 K/uL (4.8-10.8)
[2019-09-15 05:14] LABS: ALBUMIN 2.5 g/dL (3.5-5.0); BILIRUBIN,TOTAL 0.2 mg/dL (0.2-1.0); CREATININE 0.8 mg/dL (0.5-1.5); POTASSIUM 4.5 mmol/L (3.5-5.1); TOTAL PROTEIN, SERUM 5.3 g/dL (6.0-8.3)
[2019-09-15] MEDS: INSULIN R PO SS1 SQ SCH ×4 (06:20→18:17)
[2019-09-15] MEDS: INSULIN HUMULIN 70/30 100 UNIT/ML 3ML SQ SCH ×2 (06:20→06:33)
--- NOTE | 2019-09-15 06:28 | NUR ---
REFUSED PT REFUSED BLOOD SUGAR CHECK. LAB RESULTS NOTED WITH [id number]. PT REFUSED INSULIN DOSES THIS AM.
[2019-09-15] MEDS: IPRATROPIUM/ALBUTEROL SULFATE 3 ML SOLUTION IH SCH ×2 (06:45→12:03)
[2019-09-15 07:30] VITALS: BP 111/67
[2019-09-15] MEDS: METFORMIN HCL 500 MG TABLET PO SCH (10:38)
[2019-09-15] MEDS: OLANZAPINE 5 MG TAB PO SCH (10:38)
[2019-09-15] MEDS: LISINOPRIL 20 MG TABLET PO SCH (10:39)
--- NOTE | 2019-09-15 11:03 | NUR ---
CM Note: [facility] pharmacy changed recommendations CM spoke to Cleo w/[facility], per pharmacy recommended pt to be on Zosyn 3.375G Q6hrs X10 days instead. Nat CONN Director made aware, pending Dr Boyer to agree w/[facility] recs, pending MD to sign new script. Pt pending approval and chair time at this time. Primary nurse and pt updated w/poc. CM to cont to follow up.
[2019-09-15 11:13] VITALS: BP 110/59
[2019-09-15 17:09] VITALS: BP 110/54
--- NOTE | 2019-09-15 18:00 | NUR ---
PT D/C HOME WITH PICC LINE IN PLACE, PATENT AND FLUSHED WITH NS EACH PORT OF 10MLS OF NORMAL SALINE, NO RESISTANCE PT IS SCHEDULED FOR AIU AT 0800AM TOMORROW. DRESSING OF PICC LINE SECURED INTACT, DRY NO BLEEDING. USTED SIGUIRA CONT ANTIBIOTICOS EN [place] [employer]APTISM CADA JONELLE SYL SE LE INDICO POS MEDINA DOCTOR. DE SEGUIMIENTO EN 2-4 MEDINA CON MEDINA DOCTOR ALIS. LLAMAR AL DOCTOR SNELL SI EL CATETER DE MEDINA MANO DERECHA SE LE INFLAMA, ESTA MURO, LE DUELE O LA EXTREMIDAD [place] A UN COLOR ROLA O ANGI. SI TIENE DOLOR DE PECHO O FALTA DE AIRE QUE NO SE LE JEY CON DESCANSO LLAMAR AL 911. PROTEJA MEDINA CATETER INTRAVENOSO CON BOLSA DE PLASTICO Y CINTA DE PEGAR. AAOX3, IN NO DISTRESS, DENIES ANY QUESTIONS. VERY AWARE OF PLAN OF CARE SUCH AIU AND HOW TO CARE FOR PICC LINE. INFORMATIONS PRINTED SUCH EDUCATION ON UTI, HAND WASHING, COPD AND PICC LINE CARE.
== END 2019-09-15 18:15 | disposition home or self-care (01) ==
LOC: EDH 19:35 → EDHIP 22:45 → 3DH 23:11
PROVIDERS: ADMIT Internal Medicine; ATTEND Internal Medicine
DX: J44.1 Chronic obstructive pulmonary disease with (acute) exacerbation (principal); B96.20 Unspecified Escherichia coli [E. coli] as the cause of diseases classified elsewhere; N12 Tubulo-interstitial nephritis, not specified as acute or chronic; E78.5 Hyperlipidemia, unspecified; I25.10 Atherosclerotic heart disease of native coronary artery without angina pectoris; E11.9 Type 2 diabetes mellitus without complications; Z79.4 Long term (current) use of insulin; Z87.891 Personal history of nicotine dependence; Z85.118 Personal history of other malignant neoplasm of bronchus and lung
CPT/HCPCS: 36415 ×4; 36600; 71045; 80053 ×3; 81001; 82550; 82803; 82948 ×10; 83605; 83874; 84145; 84484; 85025; 85027 ×2; 85610 ×2; 85730 ×2; 87040 ×2; 87077; 87088; 87186; 93005; 94640 ×10; 94664; 96365; 96366; 96372 ×3; 96374; 96376 ×2; 99291; A4510; C1894; G0378 ×3; J1815 ×14; J1956 ×3; J2185 ×5; J2930 ×6; J7030; J7040

== ENCOUNTER 2020-10-19 09:17 | Observation (INO) | payer OTHER ==
[~2020-10-19] VITALS: Ht 167.6 cm; Wt 64.8 kg
[~2020-10-19 09:17] MED LIST changes: -LISI-613 PO; +LISI20TA24 PO
[2020-10-19 09:41] LABS: BASOPHILS % (AUTO) 0.6 % (0.0-5.0); EOSINOPHILS % (AUTO) 3.2 % (0.0-8.0); HEMATOCRIT 42.2 % (42-54); LYMPHOCYTES % (AUTO) 22.3 % (21.0-51.0); MEAN CORPUSCULAR HEMOGLOBIN 29.5 pg (27.0-33.0); MEAN CORPUSCULAR HGB CONC 32.5 g/dL (32.0-36.0); MEAN CORPUSCULAR VOLUME 90.9 fL (79-99); MONOCYTES % (AUTO) 9.1 % (3.0-13.0); NEUTROPHILS % (AUTO) 64.2 % (40.0-77.0); PLATELET COUNT (AUTO) 177 K/uL (130-400); RED BLOOD CELL COUNT(AUTO) 4.64 MIL/uL (4.50-6.20); RED CELL DISTRIBUTION WIDTH 12.6 % (11.0-15.5)
[2020-10-19] MEDS ORDERED: ASPIRIN 325 MG TABLET ONE (09:41)
[2020-10-19 09:46] LABS: CREATININE 0.9 mg/dL (0.5-1.5); POTASSIUM 4.5 mmol/L (3.5-5.1)
[2020-10-19 09:50] LABS: INR 1.05 (0.85-1.15); PROTHROMBIN TIME 11.4 SEC (9.6-11.6)
[2020-10-19 09:51] LABS: PARTIAL THROMBOPLASTIN TIME 30.8 SEC (26.3-35.5)
[2020-10-19 09:52] LABS: ALBUMIN 3.5 g/dL (3.5-5.0); BILIRUBIN,TOTAL 0.5 mg/dL (0.2-1.0); TOTAL PROTEIN, SERUM 6.5 g/dL (6.0-8.3)
[2020-10-19] MEDS ORDERED: IPRATROPIUM/ALBUTEROL SULFATE 3 ML SOLUTION IH ONE (10:01)
[2020-10-19] MEDS ORDERED: IPRATROPIUM/ALBUTEROL SULFATE 3 ML SOLUTION IH PRN (10:30)
[2020-10-19] MEDS ORDERED: ACETAMINOPHEN 325 MG TAB PO PRN (10:30)
[2020-10-19] MEDS ORDERED: SODIUM CHLORIDE 0.9% 10 ML VIAL IVP PRN (10:30)
[2020-10-19] MEDS: METHYLPREDNISOLONE SOD SUCC 125MG/2ML VIAL IVP SCH ×2 (10:30→21:43)
[2020-10-19 12:23] LABS: APPEARANCE,URINE CLEAR (CLEAR); BILIRUBIN,URINE NEGATIVE (NEGATIVE); COLOR,URINE YELLOW (YELLOW); GLUCOSE, URINE (UA) >=1000 mg/dL (NEGATIVE); KETONES,URINE NEGATIVE (NEGATIVE); LEUKOCYTE ESTERASE ,URINE TRACE (NEGATIVE); NITRATE,URINE NEGATIVE (NEGATIVE); OCCULT BLOOD,URINE NEGATIVE (NEGATIVE); PROTEIN,URINE 30 mg/dL (NEGATIVE); UROBILINOGEN,URINE 0.2 mg/dL (0.2-1.0)
[2020-10-19] MEDS ORDERED: METHYLPREDNISOLONE SOD SUCC 40MG/ML 1ML ONE (12:29)
[2020-10-19] MEDS ORDERED: ENOXAPARIN SODIUM 40 MG/0.4 ML SYRINGE SQ ONE (12:30)
[2020-10-19] MEDS ORDERED: CEFTRIAXONE SODIUM 1 GM ONE (12:30)
[2020-10-19] MEDS ORDERED: SODIUM CHLORIDE 0.9% 100 ML IV ONE (12:31)
[2020-10-19 12:51] LABS: BACTERIA,URINE Few /HPF (None Seen); RBC,URINE 0-1 /HPF (0-1); SQUAMOUS EPITHELIAL CELL,UR Rare /HPF (0-2)
[2020-10-19 16:36] VITALS: BP 158/72
[2020-10-19 18:15] VITALS: BP 125/65
[2020-10-19 18:31] VITALS: BP 136/73
[2020-10-19 18:45] VITALS: BP 141/73
[2020-10-19] MEDS: IPRATROPIUM/ALBUTEROL SULFATE 3 ML SOLUTION IH SCH ×2 (18:52→23:28)
[2020-10-19 19:30] VITALS: BP 137/75
[2020-10-19 20:00] VITALS: BP_SYST 145; BP_SYST 150; BP_DIAS 62; BP_DIAS 79
[2020-10-19] MEDS ORDERED: ATOR10TA PO (20:29)
[2020-10-19] MEDS ORDERED: METF-444 PO (20:29)
[2020-10-19] MEDS ORDERED: LISI20TA24 PO (20:29)
[2020-10-20] VITALS: BP 146/70
[2020-10-20 04:00] VITALS: BP 168/76
[2020-10-20 05:14] LABS: HEMATOCRIT 41.5 % (42-54); MEAN CORPUSCULAR HEMOGLOBIN 29.6 pg (27.0-33.0); MEAN CORPUSCULAR HGB CONC 32.5 g/dL (32.0-36.0); RED BLOOD CELL COUNT(AUTO) 4.56 MIL/uL (4.50-6.20); RED CELL DISTRIBUTION WIDTH 12.3 % (11.0-15.5); WHITE BLOOD COUNT (AUTO) 5.7 K/uL (4.8-10.8)
[2020-10-20 05:31] LABS: ALBUMIN 3.2 g/dL (3.5-5.0); BILIRUBIN,TOTAL 0.3 mg/dL (0.2-1.0); CREATININE 0.8 mg/dL (0.5-1.5); POTASSIUM 4.7 mmol/L (3.5-5.1); TOTAL PROTEIN, SERUM 6.1 g/dL (6.0-8.3)
[2020-10-20] MEDS: INSULIN HUMULIN R 100 UNIT/ML 3ML SQ SCH ×4 (06:45→21:06)
[2020-10-20] MEDS: IPRATROPIUM/ALBUTEROL SULFATE 3 ML SOLUTION IH SCH ×3 (06:52→19:31)
[2020-10-20 07:17] VITALS: BP 143/60
[2020-10-20] MEDS ORDERED: BUSP10TA3 PO (10:13)
[2020-10-20] MEDS ORDERED: INSLAN SQ (10:13)
[2020-10-20] MEDS ORDERED: APIX5TAB PO (10:13)
[2020-10-20 10:50] VITALS: BP 132/52
[2020-10-20] MEDS: AZITHROMYCIN 500MG+NS 250ML 250 ML IV SCH (11:36)
[2020-10-20] MEDS: METHYLPREDNISOLONE SOD SUCC 125MG/2ML VIAL IVP SCH ×2 (11:37→21:02)
[2020-10-20] MEDS: CEFTRIAXONE SODIUM 1 GM IVP SCH (11:37)
[2020-10-20] MEDS: ENOXAPARIN SODIUM 40 MG/0.4 ML SYRINGE SQ SCH (11:39)
[2020-10-20 15:49] VITALS: BP 130/58
[2020-10-20] MEDS: METFORMIN HCL 500 MG TABLET PO SCH (17:24)
[2020-10-20 20:00] VITALS: BP 147/70
[2020-10-20] MEDS: APIXABAN 5 MG TABLET PO SCH (21:01)
[2020-10-20] MEDS: BUSPIRONE HCL 5 MG TABLET PO SCH (21:02)
[2020-10-21] MEDS: IPRATROPIUM/ALBUTEROL SULFATE 3 ML SOLUTION IH SCH ×3 (00:32→11:36)
[2020-10-21 00:45] VITALS: BP 130/66
[2020-10-21 04:00] VITALS: BP 133/64
[2020-10-21] MEDS: INSULIN HUMULIN R 100 UNIT/ML 3ML SQ SCH ×2 (06:19→11:30)
[2020-10-21 08:03] VITALS: BP 130/55
[2020-10-21] MEDS ORDERED: ATORVASTATIN CALCIUM 10 MG TABLET PO SCH (09:00)
[2020-10-21] MEDS ORDERED: LISINOPRIL 40 MG TABLET PO SCH (09:00)
[2020-10-21] MEDS ORDERED: INSULIN GLARGINE 100 UNITS/ML 10 ML VIAL SQ SCH (09:00)
[2020-10-21] MEDS: APIXABAN 5 MG TABLET PO SCH (10:38)
[2020-10-21] MEDS: METFORMIN HCL 500 MG TABLET PO SCH (10:38)
[2020-10-21] MEDS: BUSPIRONE HCL 5 MG TABLET PO SCH (10:38)
[2020-10-21] MEDS: CEFTRIAXONE SODIUM 1 GM IVP SCH (10:38)
[2020-10-21] MEDS: METHYLPREDNISOLONE SOD SUCC 125MG/2ML VIAL IVP SCH (10:39)
[2020-10-21] MEDS: ENOXAPARIN SODIUM 40 MG/0.4 ML SYRINGE SQ SCH (10:39)
[2020-10-21] MEDS: AZITHROMYCIN 500MG+NS 250ML 250 ML IV SCH (10:40)
[2020-10-21 11:33] VITALS: BP 129/99
== END 2020-10-21 13:50 | disposition home or self-care (01) ==
LOC: EDH 09:17 → EDHIP 10:00 → 3AH 15:56
PROVIDERS: ADMIT Internal Medicine; ATTEND Internal Medicine
DX: J44.1 Chronic obstructive pulmonary disease with (acute) exacerbation (principal); E11.65 Type 2 diabetes mellitus with hyperglycemia; I10 Essential (primary) hypertension; E78.5 Hyperlipidemia, unspecified; I25.10 Atherosclerotic heart disease of native coronary artery without angina pectoris; Z85.118 Personal history of other malignant neoplasm of bronchus and lung; Z87.891 Personal history of nicotine dependence; Z95.0 Presence of cardiac pacemaker; Z79.899 Other long term (current) drug therapy
CPT/HCPCS: 36415 ×2; 71045; 80053 ×2; 81001; 82550; 82948 ×7; 83880; 84484; 85025; 85027; 85610; 85730; 92610; 93005; 94640 ×8; 94664; 96365; 96366 ×2; 96372 ×3; 96375 ×2; 96376 ×2; 99285; G0378 ×48; J0456 ×2; J0696 ×3; J1650 ×3; J1815 ×3; J2920; J2930 ×4

== ENCOUNTER → 2021-02-05 | Outpatient (CLI) | payer OTHER ==
[~2021-02-05] MED LIST changes: +APIX5TAB PO; +ATOR10TA PO; -ATOR40TA69 PO; +BUSP10TA3 PO; +INSLAN SQ; -INSU10VI3 SQ; -OLAN5TAB27 PO; +REGADENOSON 0.4 MG/5 ML PF SYG IVP SCH
== END | disposition home or self-care (01) ==
LOC: SHCH 08:32
PROVIDERS: ATTEND Internal Medicine Cardiovascular Disease
DX: I47.2 Ventricular tachycardia (principal); I48.0 Paroxysmal atrial fibrillation; I48.3 Typical atrial flutter
CPT/HCPCS: 78452; 93017; 96374; A9500 ×2; J2785

== ENCOUNTER 2022-02-18 07:53 | Emergency (ER) | payer OTHER ==
[~2022-02-18] VITALS: Ht 160 cm; Wt 66.2 kg
[~2022-02-18 07:53] MED LIST changes: -REGADENOSON 0.4 MG/5 ML PF SYG IVP SCH
[2022-02-18 08:00] VITALS: BP 156/84
[2022-02-18 08:34] LABS: APPEARANCE,URINE CLEAR (CLEAR); BILIRUBIN,URINE NEGATIVE (NEGATIVE); COLOR,URINE YELLOW (YELLOW); GLUCOSE, URINE (UA) 100 mg/dL (NEGATIVE); KETONES,URINE NEGATIVE (NEGATIVE); LEUKOCYTE ESTERASE ,URINE NEGATIVE (NEGATIVE); NITRATE,URINE NEGATIVE (NEGATIVE); OCCULT BLOOD,URINE NEGATIVE (NEGATIVE); PH,URINE 6.5 (5.0-8.0); PROTEIN,URINE TRACE mg/dL (NEGATIVE)
[2022-02-18 08:51] LABS: BACTERIA,URINE Rare /HPF (None Seen); RBC,URINE None Seen /HPF (0-1); SQUAMOUS EPITHELIAL CELL,UR Rare /HPF (0-2); WBC,URINE None Seen /HPF (0-1)
== END 2022-02-18 10:02 | disposition home or self-care (01) ==
LOC: EDH 07:53
DX: G89.29 Other chronic pain (principal); M25.551 Pain in right hip; E11.9 Type 2 diabetes mellitus without complications; E78.00 Pure hypercholesterolemia, unspecified; I11.9 Hypertensive heart disease without heart failure; M41.9 Scoliosis, unspecified; Z79.01 Long term (current) use of anticoagulants; Z79.4 Long term (current) use of insulin; Z79.899 Other long term (current) drug therapy; Z85.118 Personal history of other malignant neoplasm of bronchus and lung; Z95.810 Presence of automatic (implantable) cardiac defibrillator
CPT/HCPCS: 72192; 81001